=== PATIENT | male | born 1955 | race Caucasian/White ===

== ENCOUNTER → 2023-05-26 12:45 | Outpatient (REF) | payer OTHER, SELFPAY | LOC: DHCBS HW 12:45 | PROVIDERS: ATTENDING PHYSICIAN Nuclear Medicine Nuclear Cardiology; FAMILY PHYSICIAN Internal Medicine | DX: Z98.890 Other specified postprocedural states (principal) | CPT/HCPCS: 93306 ==

== ENCOUNTER → 2024-12-12 12:22 | Outpatient (REF) | payer OTHER, SELFPAY | LOC: RCS 12:22 | PROVIDERS: ATTENDING PHYSICIAN Nuclear Medicine Nuclear Cardiology; FAMILY PHYSICIAN Internal Medicine | DX: I10 Essential (primary) hypertension (principal); Z98.890 Other specified postprocedural states | CPT/HCPCS: 93306 ==